=== PATIENT | male | born 1980 | race Caucasian/White ===

== ENCOUNTER 2017-03-25 10:00 | Emergency (ER) | payer OTHER, SELFPAY ==
[~2017-03-25] VITALS: Ht 172.7 cm; Wt 157.8 kg
[2017-03-25] MEDS ORDERED: TRAMADOL 50 MG50 MG PO (11:31)
== END 2017-03-25 12:22 | disposition home or self-care (01) ==
LOC: ER 10:00
DX: S80.02XA Contusion of left knee, initial encounter (principal); W18.43XA Slipping, tripping and stumbling without falling due to stepping from one level to another, initial encounter; Y93.89 Activity, other specified; Y92.89 Other specified places as the place of occurrence of the external cause; Y99.8 Other external cause status

== ENCOUNTER 2017-12-21 19:24 | Emergency (ER) | payer OTHER ==
[~2017-12-21] VITALS: Ht 172.7 cm; Wt 149.7 kg
--- NOTE | ~2017-12-21 | EKG ---
[address] [address] ELECTROCARDIOGRAM REPORT Name: WIL LARA Room #: [facility]#: [id number] Admission: 12/21/17 Attend Phys: Discharge: 12/21/17 Date of : 76 Report #: [id number] THIS REPORT FOR: //name// [facility] ED Test Date: 2017-12-21 Test Time: 20:38:28 Pat Name: WIL MARCO Department: Room: Gender: M [employer]person: BENITO MARY : 1980 Requested By: Favian Koo Order Number: [id number] MD: Castro Lacey Measurements Intervals [place] Rate: 70 P: 27 [place]: 170 QRS: 27 QRSD: 100 T: 16 QT: 387 QTc: 418 Interpretive Statements Sinus rhythm Baseline wander in lead(s) V1 No previous ECG available for comparison Electronically Signed On 12-21-2017 22:30:59 CDT by Castro Lacey [email or web address] <ELECTRONICALLY SIGNED> By: Castro Lacey MD 12/21/172229 37 37 Castro Lacey MD /HOSSEIN
[~2017-12-21 19:24] MED LIST: TRAMADOL 50 MG50 MG PO
[2017-12-21] MEDS ORDERED: WELLBUTRIN SR150 MG PO (19:45)
[2017-12-21 20:30] LABS: ABSOLUTE NEUTROPHILS 6.7 thou/uL (1.4-8.2); BASOPHILS 0.6 % (0.0-2.0); EOSINOPHILS 1.7 % (0.0-3.0); HEMATOCRIT 44.4 % (42.0-52.0); HEMOGLOBIN 15.4 gm/dL (14.0-18.0); LYMPHOCYTES 33.2 % (24.0-44.0); MCH 29.9 pg (26.0-34.0); MCHC 34.7 g/dL (28.0-37.0); MCV 85.9 fL (80.0-100.0); MONOCYTES 6.4 % (1.0-8.0); PLATELET COUNT 196 thou/uL (150-400); POLYS 58.1 % (36.0-66.0); RBC 5.17 mil/uL (4.50-6.00); RDW 12.9 % (10.5-14.5); WBC 11.5 thou/uL (4.0-11.0)
[2017-12-21 20:38] LABS: CALCIUM 9.4 mg/dL (8.5-10.1); CREATININE 1.1 mg/dL (0.7-1.3); POTASSIUM 3.8 mmol/L (3.5-5.1)
[2017-12-21] MEDS ORDERED: PEPCID20 MG PO (22:10)
[2017-12-21 22:16] VITALS: BP 133/82
== END 2017-12-21 22:17 | disposition home or self-care (01) ==
LOC: ER 19:24
PROVIDERS: Physician Assistant
DX: R13.10 Dysphagia, unspecified (principal)